=== PATIENT | female | born 1980 ===

== ENCOUNTER 2017-02-05 12:01 | Emergency (ER) | payer SELFPAY ==
[2017-02-05 12:02] VITALS: BMI 37.0
[2017-02-05 12:16] VITALS: RESP 16; TEMP 98.8
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
[2017-02-05 14:33] VITALS: BP 128/77; PULSE 72; O2SAT 99
--- NOTE | 2017-02-05 15:24 | RAD ---
PROCEDURE: Right Wrist Radiographs. HISTORY: pain COMPARISON: None. FINDINGS: BONES: Normal. No fracture. JOINTS: Normal. No dislocation. SOFT TISSUES: Normal. OTHER FINDINGS: None. IMPRESSION: Normal right wrist radiographs. If symptoms persist or occult fracture suspected clinically recommend repeat radiographs in 5-10 days as most fractures should become radiographically evident in this timeframe.
== END 2017-02-05 14:30 | disposition home or self-care (01) ==
LOC: ED 12:01
DX: M25.531 Pain in right wrist (principal); G56.01 Carpal tunnel syndrome, right upper limb
CPT/HCPCS: 73110; 81025; 96372; 99283; J1885

== ENCOUNTER 2017-03-01 21:52 | Inpatient (IN) | payer MEDICAID, OTHER ==
[2017-03-01 21:54] VITALS: BMI 37.0
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
[2017-03-01 23:33] LABS: ADD MANUAL DIFF? NO
[2017-03-01 23:43] LABS: BASO # 0.02 K/mm3 (0.0-2.0); BASO % 0.3 % (0.0-3.0); EOS # 0.2 (0.0-0.7); EOS % 2.4 % (1.5-5.0); GRAN # 4.61 (1.4-6.5); GRAN % 60.8 % (50.0-68.0); LYMPH # 2.5 (1.2-3.4); LYMPH % 32.7 % (22.0-35.0); MEAN CELL VOLUME 78.1 fL (80.0-105.0); MEAN CORPUSCULAR HEMOGLOBIN 25.6 pg (25.0-35.0); MEAN CORPUSCULAR HGB CONC 32.8 g/dl (31.0-37.0); MEAN PLATELET VOLUME 9.6 fl (7.0-11.0); MONO # 0.3 (0.1-0.6); MONO % 3.8 % (1.0-6.0); PLATELET COUNT 252 10^3/uL (120.0-450.0); RED CELL DISTRIBUTION WIDTH 13.4 % (11.5-14.5); WHITE BLOOD COUNT 7.6 10^3/ul (4.5-11.0)
[2017-03-01 23:44] LABS: URINE BILIRUBIN NEGATIVE (NEGATIVE); URINE BLOOD NEGATIVE (NEGATIVE); URINE GLUCOSE (UA) NEGATIVE (NEGATIVE); URINE KETONE TRACE mg/dL (NEGATIVE); URINE LEUKOCYTE ESTERASE NEGATIVE Leu/uL (NEGATIVE); URINE PROTEIN TRACE mg/dL (<30 mg/dL); URINE UROBILINOGEN 0.2 E.U./dL (<1 E.U./dL)
[2017-03-02 00:01] LABS: URINE APPEARANCE SLIGHT-CLOUDY (CLEAR); URINE COLOR YELLOW (YELLOW)
[2017-03-02 00:03] LABS: URINE EPITHELIAL CELLS 0 - 2 /hpf (0-5); URINE RBC 0 - 2 /hpf (0-2)
[2017-03-02 00:04] LABS: URINE BACTERIA MOD (NEG)
[2017-03-02 00:04] LABS: ALB/GLOB RATIO 1.4 (1.1-1.8); ALKALINE PHOSPHATASE 52 U/L (38-133); ALT/SGPT 26 U/L (7-56); AST/SGOT 16 U/L (15-39); BILIRUBIN,TOTAL 0.3 mg/dL (0.2-1.3); BLOOD UREA NITROGEN 16 mg/dL (7-21); CALCIUM 9.1 mg/dL (8.4-10.5); CARBON DIOXIDE 23 mmol/L (21-33); CHLORIDE 109 mmol/L (95-110); GFR AFRICAN-AMERICAN > 60; GLUCOSE,RANDOM 86 mg/dL (70-110); POTASSIUM 4.3 mmol/L (3.6-5.0); SODIUM 139 mmol/L (132-148); TOTAL PROTEIN 6.9 g/dL (5.8-8.3)
[2017-03-02 02:20] VITALS: O2SAT 98
[2017-03-02] MEDS ORDERED: Magnesium Hydroxide Susp 30 ml UD PO PRN (04:39)
[2017-03-02] MEDS ORDERED: Alum-Mag Hydrox-Simethicone Susp (30 mL) PO PRN (04:39)
[2017-03-02 07:57] LABS: CHOLESTEROL 189 mg/dL (130-200); GLUCOSE,FASTING 80 mg/dL (65-110)
[2017-03-02 08:19] LABS: FREE T4 0.96 ng/dL (0.78-2.19)
[2017-03-02 08:33] LABS: THYROID STIMULATING HORMONE 1.79 mIU/mL (0.46-4.68)
--- NOTE | 2017-03-02 10:02 | CARD ---
APPROVED REPORT EKG Measurement Heart [id number] <Conclusion> Normal sinus rhythm Normal ECG
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
[2017-03-04] MEDS: Pantoprazole 40 mg EC Tab PO SCH (09:40)
[2017-03-04] MEDS: Albuterol HFA 90 mcg/actuation (8 g) IH SCH (09:42)
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
--- NOTE | 2017-03-05 08:58 | PCM.PYCHPN ---
Psychiatric Progress Note - Psychiatric Progress Note Patient seen today, length of contact: 25 minutes Problems Identified/Issues Discussed: I reviewed assessment and recent notes. I met with patient at bedside. Patient is fairly calm and cooperative. Oriented x3 and denies new concerns. Affect is constricted. She has been tolerating medications and denies any side effects, discomfort or pain. Thought processes is coherent and responses are relevant to questioning. Patient has been visible in the community. There were no behavioral issues overnight. Diagnostic Results: r/o MDD severe without psychosis r/o PTSD r/o GAURAV r/o Panic disorder Medication Change: No ( ) Medical Record Reviewed: Yes Mental Status Examination - Cognitive Function Orientation: Person, Place, Situation, Time Memory: Intact Attention: Poor Concentration: Poor Association: WNL Fund of Knowledge: WNL - Mood Mood: Depressed, Anxious - Affect Affect: Constricted (tearful), Flat - Formal Thought Process Formal Thought Process: No Impairment - Suicidal Ideation Suicidal Ideation: No - Homicidal Ideation Homicidal Ideation: No Goal/Treatment Plan - Goal/Treatment Plan Need for Continued Stay: Remain at risks for inpatient hospitalization, Severe depression anxiety, Discharge may exacerbated symptoms, Severe functional impairment Progress Toward Problem(s) and Goals/Treatment Plan: * c/w current tx and plan * No new weekend labs * Vitals reviewed and noted below Selected Entries 03/04/17 03/04/17 07:43 19:55 Temperature 98.4 F Pulse Rate 64 67 Respiratory 20 20 Rate Blood Pressure 118/58 L 113/72 Estimated Date of D/C: 03/09/17 (we'll monitor closely)
[2017-03-05] MEDS: Pantoprazole 40 mg EC Tab PO SCH (10:47)
[2017-03-05] MEDS: Albuterol HFA 90 mcg/actuation (8 g) IH SCH (10:48)
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
--- NOTE | 2017-03-06 09:02 | PCM.PYCHPN ---
Psychiatric Progress Note - Psychiatric Progress Note Patient seen today, length of contact: 25 minutes Patient Chief Complaint: "anxious and cuellar" Problems Identified/Issues Discussed: I reviewed recent notes and met with patient at bedside. Patient is fairly calm , cooperative and oriented x3 . She reports anxiety and moodiness during the day and would like medication to help for these daytime symptoms. Affect is constricted and a little anxious. Thought processes remains coherent and responses are relevant to questioning. Patient has been tolerating medications and denies any side effects, discomfort or pain. Patient has been visible in the community. Required prn medication for anxiety during the day yesterday. There were no behavioral issues overnight. Diagnostic Results: r/o MDD severe without psychosis r/o PTSD r/o GAURAV r/o Panic disorder Medication Change: Yes (Added seroquel 12.5 mg AM) Medical Record Reviewed: Yes Mental Status Examination - Cognitive Function Orientation: Person, Place, Situation, Time Memory: Intact Attention: Poor Concentration: Poor Association: WNL Fund of Knowledge: WNL - Mood Mood: Depressed, Anxious - Affect Affect: Constricted (tearful), Flat - Formal Thought Process Formal Thought Process: No Impairment - Suicidal Ideation Suicidal Ideation: No - Homicidal Ideation Homicidal Ideation: No Goal/Treatment Plan - Goal/Treatment Plan Need for Continued Stay: Remain at risks for inpatient hospitalization, Severe depression anxiety, Discharge may exacerbated symptoms, Severe functional impairment Progress Toward Problem(s) and Goals/Treatment Plan: * c/w current tx and plan * Appreciate f/u by Dr. Rinaldi on 03/05/17 ~no new recommendations * Increased Seroquel to 12.5 mg AM and 50 mg HS for lability and anxiety on 03/06 * No new weekend labs * Vitals reviewed and noted below Selected Entries 03/05/17 03/05/17 07:00 16:27 Temperature 97.6 F Pulse Rate 87 60 Respiratory 20 Rate Blood Pressure 135/96 H 127/65 Estimated Date of D/C: 03/09/17 (we'll monitor closely)
[2017-03-06] MEDS: Pantoprazole 40 mg EC Tab PO SCH (10:06)
[2017-03-06] MEDS: Albuterol HFA 90 mcg/actuation (8 g) IH SCH (10:07)
[2017-03-07] MEDS: Pantoprazole 40 mg EC Tab PO SCH (08:12)
[2017-03-07] MEDS: Albuterol HFA 90 mcg/actuation (8 g) IH SCH (08:13)
--- NOTE | 2017-03-07 09:14 | PCM.PYCHPN ---
Psychiatric Progress Note - Psychiatric Progress Note Patient seen today, length of contact: 25 minutes Patient Chief Complaint: "anxious during the day" Problems Identified/Issues Discussed: I reviewed recent notes and met with patient at bedside. Patient is fairly calm , cooperative and oriented x3 . She still reports anxiety and during the day and feels that Seroquel was not beneficial. She would like to try another medication to help for daytime anxiety symptoms. She is agreeable to vistaril prn. Affect remains constricted and a little anxious but more reactive than previous days. She feels her mood is improving. Thought processes remains coherent and responses are relevant to questioning. Patient has been tolerating her other medications and denies any side effects, discomfort or pain. Patient is still sleeping well. Patient has been visible and interactive in the community. Attending groups. Required prn medication for anxiety during the day on Tuesday. There were no major behavioral issues over the holiday weekend. Diagnostic Results: r/o MDD severe without psychosis r/o PTSD r/o GAURAV r/o Panic disorder Medication Change: Yes (d/c'ed seroquel 12.5 mg AM, started vistaril prn) Medical Record Reviewed: Yes (notes, vitals, labs, reports) Mental Status Examination - Cognitive Function Orientation: Person, Place, Situation, Time Memory: Intact Attention: WNL Concentration: Poor Association: WNL Fund of Knowledge: WNL - Mood Mood: Depressed (better), Anxious - Affect Affect: Constricted (more reactive), Flat - Formal Thought Process Formal Thought Process: No Impairment - Suicidal Ideation Suicidal Ideation: No - Homicidal Ideation Homicidal Ideation: No Goal/Treatment Plan - Goal/Treatment Plan Need for Continued Stay: Remain at risks for inpatient hospitalization, Severe depression anxiety, Discharge may exacerbated symptoms, Severe functional impairment Progress Toward Problem(s) and Goals/Treatment Plan: * c/w current tx and plan * Appreciate f/u by Dr. Rinaldi on 03/05/17 ~no new recommendations * Increased Seroquel to 12.5 mg AM and 50 mg HS for daytime lability and anxiety on 03/06/17, d/c'ed it on 03/07/17 as it was sedating and ineffective * Started Vistaril 25 mg po q8 prn: anxiety on 03/07/17 * No new weekend labs * Vitals reviewed and noted below Selected Entries 03/07/17 07:35 Temperature 97.9 F Pulse Rate 59 L Respiratory 18 Rate Blood Pressure 106/69 Estimated Date of D/C: 03/09/17 (we'll monitor closely)
[2017-03-08] MEDS: Pantoprazole 40 mg EC Tab PO SCH (08:53)
[2017-03-08] MEDS: Albuterol HFA 90 mcg/actuation (8 g) IH SCH (08:58)
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
[2017-03-09] MEDS: Pantoprazole 40 mg EC Tab PO SCH (08:36)
[2017-03-09] MEDS: Albuterol HFA 90 mcg/actuation (8 g) IH SCH (08:37)
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
[2017-03-09] MEDS: Naproxen 550 mg Tab PO PRN (17:19)
[2017-03-10] MEDS: Pantoprazole 40 mg EC Tab PO SCH (08:25)
[2017-03-10] MEDS: Albuterol HFA 90 mcg/actuation (8 g) IH SCH (08:30)
[2017-03-10] MEDS: Naproxen 550 mg Tab PO PRN ×2 (10:04→17:58)
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
--- NOTE | 2017-03-10 22:34 | RAD ---
EXAM: XR Chest, 1 View CLINICAL HISTORY: 36 years old, female; Screening exam; Other screening; Additional info: [place] [facility] [place] Admission TECHNIQUE: Frontal view of the chest. COMPARISON: CR - CHEST PORTABLE 07/25/2016 10:18:57 AM FINDINGS: The cardiomediastinal silhouette is unremarkable. The lungs are clear. No subdiaphragmatic free air or pneumothorax. The trachea is midline. IMPRESSION: No focal infiltrate or effusion.
[2017-03-11 08:19] LABS: ADD MANUAL DIFF? NO
[2017-03-11 08:23] LABS: BASO # 0.01 K/mm3 (0.0-2.0); BASO % 0.2 % (0.0-3.0); EOS # 0.2 (0.0-0.7); EOS % 2.8 % (1.5-5.0); GRAN % 60.6 % (50.0-68.0); HEMATOCRIT 37.4 % (36.0-48.0); LYMPH # 1.9 (1.2-3.4); LYMPH % 31.8 % (22.0-35.0); MEAN CELL VOLUME 78.4 fL (80.0-105.0); MEAN CORPUSCULAR HEMOGLOBIN 25.6 pg (25.0-35.0); MEAN CORPUSCULAR HGB CONC 32.6 g/dl (31.0-37.0); MEAN PLATELET VOLUME 9.9 fl (7.0-11.0); MONO # 0.3 (0.1-0.6); MONO % 4.6 % (1.0-6.0); PLATELET COUNT 263 10^3/uL (120.0-450.0); RED CELL DISTRIBUTION WIDTH 13.6 % (11.5-14.5); WHITE BLOOD COUNT 6.1 10^3/ul (4.5-11.0)
[2017-03-11 08:34] LABS: ALB/GLOB RATIO 1.2 (1.1-1.8); ALKALINE PHOSPHATASE 63 U/L (38-133); ALT/SGPT 29 U/L (7-56); AST/SGOT 17 U/L (15-39); BILIRUBIN,TOTAL 0.4 mg/dL (0.2-1.3); BLOOD UREA NITROGEN 16 mg/dL (7-21); CARBON DIOXIDE 26 mmol/L (21-33); CHLORIDE 107 mmol/L (98-107); GFR AFRICAN-AMERICAN > 60; GLUCOSE,RANDOM 85 mg/dL (70-110); POTASSIUM 4.3 mmol/L (3.6-5.0); SODIUM 138 mmol/L (132-148); TOTAL PROTEIN 6.7 g/dL (5.8-8.3)
[2017-03-11 09:07] VITALS: BP 115/83; PULSE 78; RESP 16; TEMP 98.4
[2017-03-11] MEDS: Albuterol HFA 90 mcg/actuation (8 g) IH SCH (09:14)
[2017-03-11] MEDS: Pantoprazole 40 mg EC Tab PO SCH (09:14)
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
== END 2017-03-11 12:33 | disposition home or self-care (01) | DRG 426 ==
LOC: ED 21:52 → ERH 03-02 02:34 → PSYC 03-02 04:31
PROVIDERS: ADMIT Psychiatry & Neurology Psychiatry; ATTEND Psychiatry & Neurology Psychiatry
DX: F32.9 Major depressive disorder, single episode, unspecified (principal); E11.9 Type 2 diabetes mellitus without complications; J44.9 Chronic obstructive pulmonary disease, unspecified; F43.10 Post-traumatic stress disorder, unspecified; F41.9 Anxiety disorder, unspecified; N80.9 Endometriosis, unspecified; J45.909 Unspecified asthma, uncomplicated; A63.0 Anogenital (venereal) warts; K21.9 Gastro-esophageal reflux disease without esophagitis; E66.9 Obesity, unspecified; F17.210 Nicotine dependence, cigarettes, uncomplicated; Z68.39 Body mass index [BMI] 39.0-39.9, adult; Z98.84 Bariatric surgery status; Z91.410 Personal history of adult physical and sexual abuse; Z88.0 Allergy status to penicillin

== ENCOUNTER 2019-01-30 11:33 | Inpatient (IN) | payer MEDICARE, MEDICAID ==
[2019-01-30 11:34] VITALS: BMI 37.0
[2019-01-30 12:19] LABS: URINE BILIRUBIN NEGATIVE (NEGATIVE); URINE BLOOD MODERATE (NEGATIVE); URINE GLUCOSE (UA) NEGATIVE (NEGATIVE); URINE LEUKOCYTE ESTERASE NEGATIVE Leu/uL (NEGATIVE); URINE PROTEIN NEGATIVE mg/dL (<30 mg/dL); URINE UROBILINOGEN 0.2 E.U./dL (<1 E.U./dL)
[2019-01-30 12:20] LABS: URINE APPEARANCE CLEAR (CLEAR); URINE COLOR YELLOW (YELLOW)
[2019-01-30 12:27] LABS: URINE BACTERIA MANY /hpf
[2019-01-30 12:38] LABS: BASO # 0.01 K/mm3 (0.0-2.0); BASO % 0.1 % (0.0-3.0); EOS # 0.3 (0.0-0.7); EOS % 3.1 % (1.5-5.0); HEMOGLOBIN 11.8 g/dL (12.0-16.0); LYMPH # 1.6 (1.2-3.4); LYMPH % 17.6 % (22.0-35.0); MEAN CELL VOLUME 81.7 fl (80.0-105.0); MEAN CORPUSCULAR HEMOGLOBIN 25.4 pg (25.0-35.0); MEAN CORPUSCULAR HGB CONC 31.1 g/dl (31.0-37.0); MEAN PLATELET VOLUME 8.9 fl (7.0-11.0); MONO # 0.3 (0.1-0.6); MONO % 3.5 % (1.0-6.0); RBC 4.64 10^6/uL (3.5-6.1); RED CELL DISTRIBUTION WIDTH 14.9 % (11.5-14.5); WHITE BLOOD COUNT 9.3 10^3/uL (4.5-11.0)
[2019-01-30 12:48] LABS: ALB/GLOB RATIO 1.4 (1.1-1.8); ALT/SGPT 14 U/L (7-56); AST/SGOT 21 U/L (14-36); BLOOD UREA NITROGEN 8 mg/dL (7-21); CALCIUM 8.9 mg/dL (8.4-10.5); GFR NON-AFRICAN AMERICAN > 60
[2019-01-30 12:49] LABS: ACETAMINOPHEN < 10.0 ug/ml (10.0-20.0); SALICYLATE < 1 mg/dL (2.0-20.0)
[2019-01-30 14:35] LABS: BARBITURATES, UR NEGATIVE (NEGATIVE); BENZODIAZEPINES, UR NEGATIVE (NEGATIVE); OPIATES, UR NEGATIVE (NEGATIVE); PHENCYCLIDINE, UR NEGATIVE (NEGATIVE)
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
[2019-01-30 16:07] VITALS: O2SAT 98
--- NOTE | 2019-01-30 16:30 | RAD ---
Date of service: 01/30/2019 HISTORY: pes eval COMPARISON: 03/10/2017 TECHNIQUE: 1 view obtained. FINDINGS: LUNGS: No active pulmonary disease. PLEURA: No significant pleural effusion identified, no pneumothorax apparent. CARDIOVASCULAR: No aortic atherosclerotic calcification present. Normal cardiac size. No pulmonary vascular congestion. OSSEOUS STRUCTURES: No significant abnormalities. VISUALIZED UPPER ABDOMEN: Normal. OTHER FINDINGS: None. IMPRESSION: No active disease.
--- NOTE | 2019-01-30 18:22 | PCM.BM ---
<Nancy Cardoza - Last Filed: 01/30/19 18:19> Treatment Plan Problems - Problems identified on initial assessmt suicidal ideation Date Initiated: 01/30/19 Time Initiated: 18:00 Assessment reference: NA Status: Active Priority: 1 hopeless/helpless Date Initiated: 01/30/19 Time Initiated: 18:00 Assessment reference: NA Status: Active Priority: 2 inefffective coping Date Initiated: 01/30/19 Time Initiated: 18:00 Assessment reference: NA Status: Active Priority: 3 altered sleep Date Initiated: 01/30/19 Time Initiated: 18:00 Assessment reference: NA Status: Active Priority: 4 self care deficit Date Initiated: 01/30/19 Time Initiated: 18:00 Assessment reference: NA Status: Active Priority: 5 social isolation Date Initiated: 01/30/19 Time Initiated: 18:00 Assessment reference: NA Status: Active Priority: 6 Treatment assets and liabiliti Patient Assests: cooperative, motivated, ADL independent, cognitively intact Patient Liabilities: medical problems, other (disabled mother and sister) - Milieu Protocol Maintain good personal hygiene: every shift Encourage regular showers, every shift Remind patient to perform daily oral care, every shift Assist patient to perform ADL's Maintain personal safety: daily Educate patient to report safety concerns to staff, daily Monitor environment for contraband/sharps Medication safety: Monitor for expected outcome, potential side effects: daily, Assess barriers to learning: daily, Assess readiness for medication education: daily Discharge/Continuing Care - Education Needs Education Needs: Patient Medication, Patient Diagnosis/Disease Process, Patient Coping Skills, Patient Placement options, Patient Community resources, Patient Activities of Daily Living, Patient Pain, Patient Nutrition, Patient Health Practices/Safety, Patient Personal Hygiene/Grooming, Patient Aftercare Safety Plan - Discharge Discharge Criteria: Tolerates medication w/o severe side effects, Free of Suicidal thoughts, Free of Homicidal thoughts, Free of agitation, Normal sleep pattern, Ability to care for self, Reduction of target symptoms Discharge to:: Home <Guillermo Dorado - Last Filed: 01/31/19 12:08> - Diagnosis (1) Depression Status: Acute Interventions: 01/31/19 12:08 * Milieu/structure/supportive therapy * SW consultation for discharge plan and social issues * Benzotropine 1mg PO BID and Abilify 30mg PO HS for depression and as a mood stabilizer * Prozac 10 mg po AM for depression and anxiety. Titrate carefully and monitor for manic sx * Dailey ER 450mg bid and Lamictal 200 mg po daily for mood control * Seroquel 50 mg po HS for insomnia/mood control as Abilify is maxed * Prazosin 16mg is nonformulary (2) Bipolar 1 disorder Status: Acute Interventions: 01/31/19 12:08 * Milieu/structure/supportive therapy * consultation for discharge plan and social issues * Benzotropine 1mg PO BID and Abilify 30mg PO HS for depression and as a mood stabilizer * Prozac 10 mg po AM for depression and anxiety. Titrate carefully and monitor for manic sx * [place]iley ER 450mg bid and Lamictal 200 mg po daily for mood control * Seroquel 50 mg po HS for insomnia/mood control as Abilify is maxed * Prazosin 16mg is nonformulary (3) GAURAV (generalized anxiety disorder) Status: Acute Interventions: 01/31/19 12:08 * Milieu/structure/supportive therapy * consultation for discharge plan and social issues * Benzotropine 1mg PO BID and Abilify 30mg PO HS for depression and as a mood stabilizer * Prozac 10 mg po AM for depression and anxiety. Titrate carefully and monitor for manic sx * Dailey ER 450mg bid and Lamictal 200 mg po daily for mood control * Seroquel 50 mg po HS for insomnia/mood control as Abilify is maxed * Prazosin 16mg is nonformulary (4) PTSD (post-traumatic stress disorder) Status: Acute Interventions: 01/31/19 12:08 * Milieu/structure/supportive therapy * consultation for discharge plan and social issues * Benzotropine 1mg PO BID and Abilify 30mg PO HS for depression and as a mood stabilizer * Prozac 10 mg po AM for depression and anxiety. Titrate carefully and monitor for manic sx * [place]iley ER 450mg bid and Lamictal 200 mg po daily for mood control * Seroquel 50 mg po HS for insomnia/mood control as Abilify is maxed * Prazosin 16mg is nonformulary
--- NOTE | 2019-01-30 18:22 | CARD ---
APPROVED REPORT Date of service: 01/30/2019 EKG Measurement Heart [id number] <Conclusion> Normal sinus rhythm Poor R Progression V Leads.
[2019-01-30] MEDS ORDERED: Alum-Mag Hydrox-Simethicone Susp (30 mL) PO PRN (18:35)
[2019-01-30] MEDS ORDERED: Magnesium Hydroxide Susp 30 ml UD PO PRN (18:35)
[2019-01-30] MEDS: Lithium Carbonate ER Tab 450 MG PO SCH (18:49)
[2019-01-31 07:51] LABS: HDL CHOLESTEROL 56 mg/dL (29-60)
[2019-01-31 07:59] LABS: FREE T4 1.1 ng/dL (0.78-2.19)
[2019-01-31 08:02] LABS: LDL CHOLESTEROL 117 mg/dL (0-129)
[2019-01-31] MEDS: Lithium Carbonate ER Tab 450 MG PO SCH ×2 (08:08→15:43)
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
[2019-02-01] MEDS: Lithium Carbonate ER Tab 450 MG PO SCH ×2 (09:41→17:41)
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
--- NOTE | 2019-02-01 14:29 | PN ---
DATE: 02/01/2019 SUBJECTIVE: I took a walk with her in the psychiatric floor. She is doing much better. She is feeling much better already. She has no feelings of UTI, although came out moderate in the UA C and S. If the C and S comes back negative, I will stop the Macrobid, but she is doing well. She was very depressed when she came in. She tells me she is already starting to feel better. She is eating well, going to the bathroom well. No complaints. She is on Abilify, Cogentin, Lamictal, lithium, Maalox, Macrobid, milk of magnesia, Prozac, Seroquel, Sonata, and Tylenol. PHYSICAL EXAMINATION: VITAL SIGNS: She has 97.9 temperature, 55 pulse, 181/52 blood pressure, 20 respiratory rate, 98% O2 sat. LABORATORY DATA: She has a 9.3 white count, 11.8 hemoglobin, 267 platelets. Sodium 140, potassium 4.1, BUN 8, creatinine 0.8, GFR is greater than 60, sugar is 92. AST is 21, ALT is 14, alk phos 74, triglycerides are 144. Vitamin D was good at 44.1. TSH is 0.47. Urine was many bacteria. ASSESSMENT AND PLAN: We will keep a close eye on her. Follow her as per Psychiatry. I do think she is trying to improve, which is great. I will encourage her to participate, take her medications, and we will see her. Kavon Ramires DO
[2019-02-02] MEDS: Lithium Carbonate ER Tab 450 MG PO SCH ×2 (09:50→15:57)
--- NOTE | 2019-02-02 12:15 | PN ---
DATE: 02/02/2019 SUBJECTIVE: I was her in the psychiatric floor. She is eating her breakfast well, a little disappointed that she is not being discharge today. She would be going home on Tuesday. She is feeling better. She is eating well, going to the bathroom well. No more issues or depression she tells me. She is on antibiotics for UTI. MEDICATIONS: She is on Abilify, Cogentin, Lamictal, lithium, Maalox, Macrobid, milk of magnesia, Prozac, Seroquel, Sonata, and Tylenol. PHYSICAL EXAMINATION: VITAL SIGNS: She has a 98.4 temperature, 54 pulse, 92/53 blood pressure, 20 respiratory rate. HEAD: Head is atraumatic and normocephalic. HEART: Regular rate. LUNGS: Decreased breath sounds, but clear. ABDOMEN: Soft, obese and nontender. EXTREMITIES: No edema. ASSESSMENT AND PLAN: She is eating well, going to the bathroom well, participating, taking medications and is looking forward to Tuesday when she could be discharged and I will follow over the weekend. Kavon Ramires DO
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
[2019-02-03] MEDS: Lithium Carbonate ER Tab 450 MG PO SCH ×2 (07:56→17:24)
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
--- NOTE | 2019-02-03 12:50 | PN ---
DATE: 02/03/2019 SUBJECTIVE: I saw her sitting now from bed to chair, is very comfortable. She ate her breakfast. She is doing well. She is eating well. She is walking well. Going to the bathroom well. She tells me she is improving with the psychiatric medication. The medications are the same. No changes. She is happy. She is improved. PHYSICAL EXAMINATION: VITAL SIGNS: She has a 98.1 temperature, 55 pulse, 92/57 blood pressure, 18 respiratory rate. HEENT: Head is atraumatic, normocephalic. HEART: Regular rate. LUNGS: Clear to auscultation. ABDOMEN: Soft. EXTREMITIES: No edema. NEUROLOGIC: She has a little bit of UTI and depression. ASSESSMENT AND PLAN: Overall, she is doing quite well. The labs are good on 01/30/2019. She did have a urinary tract infection. Vitamin D was 44.1. We will continue as per Psychiatry. I encouraged her to participate, eat food, and be as comfortable as she can until she is able to be discharged. Kavon Ramires DO
[2019-02-04] MEDS: Lithium Carbonate ER Tab 450 MG PO SCH ×2 (08:20→15:39)
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
--- NOTE | 2019-02-04 12:55 | PN ---
DATE: 02/04/2019 SUBJECTIVE: She is in the psychiatric floor. She is playing [employer]ino[employer] in the table with another resident. She is in good spirits. No complaints. She is looking forward to being discharge on Tuesday, today is Tuesday. MEDICATIONS: She is on Abilify, Cogentin, lithium, Maalox, Macrobid, milk of magnesia, Prozac, Seroquel, Sonata, and Tylenol. PHYSICAL EXAMINATION: VITAL SIGNS: She has a 97.9 temperature, 53 pulse, 105/57 blood pressure and 19 respiratory rate. HEENT: Head is atraumatic and normocephalic. HEART: Regular rate. LUNGS: Decreased breath sounds, but clear. ABDOMEN: Soft. Morbidly obese. EXTREMITIES: No edema. ASSESSMENT AND PLAN: She is very pleasant. She is comfortable. She tells me she is feeling a lot better. She has depression and urinary tract infection. Overall, I am very happy with her, I think she is improved. Hopefully, tomorrow psychiatry could let her to be discharged. She knows to take her medication and hopefully she will do well. We will follow. Kavon Ramires DO
[2019-02-05 06:58] VITALS: BP 102/72; PULSE 90; RESP 20; TEMP 98
[2019-02-05] MEDS: Lithium Carbonate ER Tab 450 MG PO SCH (08:17)
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
--- NOTE | 2019-02-05 14:30 | PN ---
DATE: 02/05/2019 SUBJECTIVE: She tells me she is going home today. She will follow up with her outpatient doctor and psychiatrist and will continue with the medications she was getting here; Abilify, Cogentin, lithium, Maalox, Macrobid for 2 more days, milk of magnesia, Prozac, Seroquel, Sonata, and Tylenol. She is going to drink lots of fluid, she is going to take her medications and follow up with her doctors. PHYSICAL EXAMINATION: VITAL SIGNS: She has a 98 temperature, 90 pulse, 102/72 blood pressure, 20 respiratory rate. HEENT: Head is atraumatic, normocephalic. HEART: Regular rate. LUNGS: Clear to auscultation. ABDOMEN: Soft. EXTREMITIES: No edema. She is obese. She will try and eat a healthy diet as per Psychiatry, two more days of Macrobid. Kavon Ramires DO
== END 2019-02-05 12:07 | disposition home or self-care (01) | DRG 885 ==
LOC: ED 11:33 → ERH 15:05 → PSYC 17:03
PROVIDERS: ADMIT Psychologist; ATTEND Psychologist
PROC: GZ3ZZZZ Medication Management (ICD-10-PCS; principal; 2019-01-31)
DX: F31.9 Bipolar disorder, unspecified (principal); N39.0 Urinary tract infection, site not specified; F43.10 Post-traumatic stress disorder, unspecified; F41.1 Generalized anxiety disorder; F12.10 Cannabis abuse, uncomplicated; G47.00 Insomnia, unspecified; Z91.5 Personal history of self-harm; Z98.84 Bariatric surgery status; Z87.891 Personal history of nicotine dependence; Z88.0 Allergy status to penicillin; Z91.013 Allergy to seafood; Z81.8 Family history of other mental and behavioral disorders